=== PATIENT | male | born 1970 | race Caucasian/White ===

== ENCOUNTER 2017-02-26 19:22 | Emergency (ER) | payer MEDICAID, MEDICARE ==
[~2017-02-26] VITALS: Ht 165.1 cm; Wt 70.4 kg
[2017-02-26 19:27] VITALS: BP 107/62
[2017-02-26] MEDS ORDERED: IBUPROFEN 200 MG TABLET PO ONE ×2 (20:00→20:30)
[2017-02-26] MEDS ORDERED: ACETAMINOPHEN 325 MG TABLET PO ONE (20:30)
[2017-02-26] MEDS ORDERED: ACETAMINOPHEN 325 MG TABLET ONE (20:34)
[2017-02-26] MEDS ORDERED: IBUPROFEN 200 MG TABLET ONE (20:34)
[2017-02-26] MEDS ORDERED: BENZONATATE 100 MG CAPSULE PO ONE (21:00)
== END 2017-02-26 22:08 | disposition home or self-care (01) ==
LOC: ED 21:58
DX: J20.8 Acute bronchitis due to other specified organisms (principal); Z87.891 Personal history of nicotine dependence
CPT/HCPCS: 71020

== ENCOUNTER 2018-07-07 13:35 | Emergency (ER) | payer MEDICARE, MEDICAID ==
[~2018-07-07] VITALS: Ht 165.1 cm; Wt 70.0 kg
[2018-07-07 13:37] VITALS: BP 138/91
[2018-07-07] MEDS ORDERED: LIDOCAINE-MPF 2%, 2ML ONE (13:43)
[2018-07-07] MEDS ORDERED: LIDOCAINE-MPF 1%, 5ML INFIL ONE (14:00)
[2018-07-07] MEDS ORDERED: DIPH,PERTUSS(ACELL),TET VAC/PF 0.5 ML IM-VACC ONE ×2 (14:00→14:05)
[2018-07-07] MEDS ORDERED: BACITRACIN ZINC OINT 500U/GM, 0.9 GM ONE (14:05)
== END 2018-07-07 15:49 | disposition home or self-care (01) ==
LOC: ED 15:13
DX: S61.212A Laceration without foreign body of right middle finger without damage to nail, initial encounter (principal); F17.200 Nicotine dependence, unspecified, uncomplicated; W45.8XXA Other foreign body or object entering through skin, initial encounter; Y93.89 Activity, other specified; Y99.8 Other external cause status; Y92.009 Unspecified place in unspecified non-institutional (private) residence as the place of occurrence of the external cause
CPT/HCPCS: 12002; 90471; 90715; 99283

== ENCOUNTER 2019-10-25 05:07 | Emergency (ER) | payer MEDICARE, MEDICAID ==
[~2019-10-25] VITALS: Ht 165.1 cm; Wt 57.6 kg
[2019-10-25 05:10] VITALS: BP 142/73
--- NOTE | 2019-10-25 05:28 | NUR ---
REMOVED GLOVE ON LEFT HAND WITH SCISSORS. PLACED GAUZE TO LAC TO CONTROL SMALL AMT OF BLEEDING.
[2019-10-25] MEDS ORDERED: CEFAZOLIN 1,000 MG IM ONE (05:30)
[2019-10-25] MEDS ORDERED: LIDOCAINE-MPF 1%, 5ML INFIL ONE (05:30)
[2019-10-25] MEDS ORDERED: CEFAZOLIN 1,000 MG ONE (05:36)
[2019-10-25] MEDS ORDERED: LIDOCAINE-MPF 1%, 2ML ONE ×2 (05:36→05:40)
--- NOTE | 2019-10-25 05:55 | NUR ---
CLEANED WOUND WITH STERILE WATER, BACITRACIN APPLIED, COVERED WITH NON ADHERENT AND WRAPPED WITH GAUZE. SPLINT PLACED OVER DRESSING. PT TOLERATED WELL.
== END 2019-10-25 06:19 | disposition home or self-care (01) ==
LOC: ED 05:32
DX: S61.012A Laceration without foreign body of left thumb without damage to nail, initial encounter (principal); S00.12XA Contusion of left eyelid and periocular area, initial encounter; L03.012 Cellulitis of left finger; F17.200 Nicotine dependence, unspecified, uncomplicated; X58.XXXA Exposure to other specified factors, initial encounter; Y93.89 Activity, other specified; Y92.89 Other specified places as the place of occurrence of the external cause; Y99.8 Other external cause status
CPT/HCPCS: 29125; 96372; 99283; J0690

== ENCOUNTER 2020-06-16 00:54 | Emergency (ER) | payer MEDICARE, MEDICAID ==
[~2020-06-16] VITALS: Ht 152.4 cm; Wt 55.9 kg
--- NOTE | 2020-06-16 01:19 | NUR ---
Pt amb w/ steady gait to room from lobby.
--- NOTE | 2020-06-16 02:09 | NUR ---
PT IN NO SIGNS OF ACUTE DISTRESS, PROVIDED WATER AT REQUEST. AWAITING SPLINT.
[2020-06-16 02:10] VITALS: BP 117/68
== END 2020-06-16 02:55 | disposition home or self-care (01) ==
LOC: ED 01:28
DX: S62.362A Nondisplaced fracture of neck of third metacarpal bone, right hand, initial encounter for closed fracture (principal); F17.210 Nicotine dependence, cigarettes, uncomplicated; W01.0XXA Fall on same level from slipping, tripping and stumbling without subsequent striking against object, initial encounter; Y93.89 Activity, other specified; Y92.488 Other paved roadways as the place of occurrence of the external cause; Y99.8 Other external cause status
CPT/HCPCS: 29125; 99283; 99406

== ENCOUNTER 2020-07-27 23:39 | Emergency (ER) | payer MEDICARE, MEDICAID ==
[~2020-07-27] VITALS: Ht 165.1 cm; Wt 57.2 kg
[2020-07-27 23:42] VITALS: BP 126/89
[2020-07-28] MEDS ORDERED: LORazepam 1MG TABLET ONE (00:05)
--- NOTE | 2020-07-28 00:10 | NUR ---
Pt provided with urinal and asked to provide urine sample. Pt states he doesn't have to urinate. Pt asked to please attempt and will be back to check in a few minutes
--- NOTE | 2020-07-28 00:21 | NUR ---
Pt still has not provided urine sample, pt asked to please try
[2020-07-28 00:29] LABS: BASOPHILS # (AUTO) 0.03 x10^3/uL (0-0.1); BASOPHILS % (AUTO) 0 % (0-1); EOSINOPHILS # (AUTO) 0.29 x10^3/uL (0-0.4); EOSINOPHILS % (AUTO) 5 % (1-7); LYMPHOCYTES # (AUTO) 1.23 x10^3/uL (1-3.4); LYMPHOCYTES % (AUTO) 20 % (22-44); MD NO; MEAN CORPUSCULAR HEMOGLOBIN 32.7 pg (27.5-34.5); MEAN CORPUSCULAR HGB CONC 32.8 g/dL (33.2-36.2); MEAN PLATELET VOLUME 7.9 fL (7.4-10.4); MONOCYTES # (AUTO) 0.53 x10^3/uL (0.2-0.8); MONOCYTES % (AUTO) 9 % (2-9); NEUTROPHILS # (AUTO) 4.18 x10^3/uL (1.8-6.8); NEUTROPHILS % (AUTO) 67 % (42-75); PLATELET COUNT 248 x10^3/uL (130-400); RED BLOOD COUNT 4.49 x10^6/uL (4.38-5.82); RED CELL DISTRIBUTION WIDTH 14.5 % (9.4-14.8)
[2020-07-28] MEDS ORDERED: LORazepam 1MG TABLET PO ONE (00:30)
[2020-07-28 01:01] LABS: ALANINE AMINOTRANSFERASE 31 U/L (12-78); ALBUMIN 3.5 g/dL (3.4-5.0); ANION GAP 6 mmol/L (5-15); CALCIUM 8.7 mg/dL (8.5-10.1); CHLORIDE 113 mmol/L (98-107); CREATININE 0.98 mg/dL (0.7-1.3)
[2020-07-28 01:03] LABS: ALKALINE PHOSPHATASE 63 U/L (45-117); BILIRUBIN,TOTAL 0.4 mg/dL (0.2-1.0); TOTAL PROTEIN 6.4 g/dL (6.4-8.2)
[2020-07-28] MEDS ORDERED: CHLORDIAZEPOXIDE 25 MG CAPSULE ONE (01:15)
[2020-07-28] MEDS ORDERED: CHLORDIAZEPOXIDE 25 MG CAPSULE PO ONE (01:30)
== END 2020-07-28 01:29 | disposition home or self-care (01) ==
LOC: ED 07-28 00:15
DX: F10.239 Alcohol dependence with withdrawal, unspecified (principal); R51 Headache; R05 Cough; Y90.0 Blood alcohol level of less than 20 mg/100 ml
CPT/HCPCS: 36415; 80053; 80307; 85025; 99283

== ENCOUNTER 2020-10-28 05:21 | Emergency (ER) | payer MEDICARE, MEDICAID ==
[~2020-10-28] VITALS: Ht 165.1 cm; Wt 58.0 kg
[2020-10-28] MEDS ORDERED: MECLIZINE CHEWABLE 25 MG TAB ONE (05:44)
[2020-10-28] MEDS ORDERED: ONDANSETRON ODT 4 MG ONE (05:44)
[2020-10-28] MEDS ORDERED: ONDANSETRON ODT 4 MG PO ONE (06:00)
[2020-10-28] MEDS ORDERED: MECLIZINE CHEWABLE 25 MG TAB PO ONE (06:00)
[2020-10-28 06:16] LABS: BASOPHILS % (AUTO) 1 % (0-1); EOSINOPHILS % (AUTO) 4 % (1-7); LYMPHOCYTES % (AUTO) 15 % (22-44); MEAN CORPUSCULAR HEMOGLOBIN 32.3 pg (27.5-34.5); MEAN CORPUSCULAR HGB CONC 34.1 g/dL (33.2-36.2); MONOCYTES % (AUTO) 7 % (2-9); NEUTROPHILS % (AUTO) 73 % (42-75); PLATELET COUNT 215 x10^3/uL (130-400); RED BLOOD COUNT 5.01 x10^6/uL (4.38-5.82); RED CELL DISTRIBUTION WIDTH 13.2 % (9.4-14.8)
[2020-10-28 06:26] LABS: ALBUMIN 3.8 g/dL (3.4-5.0); ANION GAP 1 mmol/L (5-15); CALCIUM 9.2 mg/dL (8.5-10.1); CHLORIDE 111 mmol/L (98-107); CREATININE 0.95 mg/dL (0.7-1.3)
[2020-10-28 06:31] LABS: MD NO
--- NOTE | 2020-10-28 06:56 | NUR ---
REPORT RECEIVED FROM ELYSE AUGUST. PT RESTING ON [facility] W/ CALL LIGHT IN REACH, RESP EVEN AND UNLABORED, NADN. ALL TESTS RESULTED, PT IS UP FOR RECHECK AT THIS TIME.
[2020-10-28 07:23] VITALS: BP 119/74
--- NOTE | 2020-10-28 07:23 | NUR ---
CARE FOR DC ONLY PROVIDED. PT SITTING ON GURNEY, DRESSED AND READY TO GO. NO IV TO DC. NO C/O OFFERED. PT LEFT AMB, GAIT STEADY
--- NOTE | 2020-10-28 07:24 | NUR ---
Patient given discharge instructions and they have confirmed that they understand the instructions. Patient ambulatory with steady gait.
== END 2020-10-28 07:34 | disposition home or self-care (01) ==
LOC: ED 05:37
DX: R42 Dizziness and giddiness (principal); R11.0 Nausea; R94.31 Abnormal electrocardiogram [ECG] [EKG]
CPT/HCPCS: 36415; 80048; 82040; 85025; 93005; 99284; Q0162